=== PATIENT | female | born 1955 | race Caucasian/White ===

== ENCOUNTER 2020-05-28 11:36 | Outpatient (REF) | payer OTHER, SELFPAY | END 2020-05-28 11:37 | disposition home or self-care (01) | LOC: HO.LAB 11:36 | PROVIDERS: Visit Provider Internal Medicine | DX: Z20.822 Contact with and (suspected) exposure to COVID-19 (principal) | CPT/HCPCS: 36415; C9803; U0003 ==

== ENCOUNTER 2024-11-14 13:51 | Outpatient (AMB) | payer MEDICARE, SELFPAY ==
[2024-11-14 13:57] VITALS: BP 122/82; PULSE 96; O2SAT 95; BMI 30.3
--- NOTE | 2024-11-14 13:57 | A.OFFVIS_ITS ---
Vital Signs 11/14/24 13:57 Height 4 ft 11 in Weight 150 lb BMI 30.3 BP 122/82 Blood Pressure Location Lt brachial Position Sitting Pulse 96 Pulse Source Pulse Oximeter Pulse Oximetry (%) 95 Oxygen Delivery Method Room Air Intake Visit Reasons: COPD Allergies No Known Allergies Allergy (Verified 11/14/24 14:02) HPI HPI COPD: Details: 69-year-old lady, former approximately 20 pack-year smoker, quit approximately 10 years prior with recent bronchitic symptoms treated by her primary care with well course of antibiotics and also started on Arnuity/albuterol MDI, eventually with resolution of her symptoms, who referred for further pulmonary evaluation. Patient denies exposure to industrial dusts. She has what appears to be environmental allergies to dogs. She denies family history of lung disease except COPD in her mother who was a smoker. Patient does have recent chest x- ray from June of 2024 from per primary care provider that shows changes consistent with possible COPD. [facility] Social History (Updated 11/14/24 @ 14:07 by Suellen Engel [facility]) Patient Tobacco Use Status: Former Tobacco user Tobacco use type: Cigarette Years Smoked: started age 16, 0.5 PPD, quit 10 years ago Review of Systems Const Denies daytime sleepiness, Denies excessive sweating, Denies fatigue, Denies fever(s), Denies lethargy, Denies malaise, Denies night sweats, Denies snoring and Denies weight loss Eyes Denies blurry vision and Denies itchy eyes ENT Denies nasal congestion, Denies post nasal drip, Denies sinus pain, Denies sinus pressure and Denies other ( Thrush) Card Denies chest pain, Denies pedal edema, Denies dyspnea, Denies orthopnea and Denies paroxysmal nocturnal dyspnea Resp Denies cough, Denies hemoptysis, Denies excessive phlegm production, Denies dyspnea, Denies snoring and Denies wheezing GI Denies abdominal pain and Denies heartburn Musc Denies myalgias, Denies arthralgias and Denies joint swelling Skin/Breast Denies rash Neuro Denies memory loss and Denies seizure-like activity Psych Denies abnormal sleep pattern, Denies anxiety and Denies memory loss Endo Denies excessive sweating, Denies fatigue and Denies heat intolerance Les/Lymph Denies easy bruising Aller/Immun Denies itchy eyes, Denies seasonal rhinorrhea and Denies wheezing Physical Exam Vital Signs: Last Vital Signs Pulse 96 11/14/24 13:57 BP 122/82 11/14/24 13:57 Pulse Ox 95 11/14/24 13:57 Oxygen Delivery Method Room Air 11/14/24 13:57 BMI result Body Mass Index 30.3 Const General: no acute distress and alert Nutritional Appearance: not obese Orientation/consciousness: Other orientation findings ( oriented) HEENT Head: Yes atraumatic Eyes General: appearance normal, both eyes and all related structures Sclerae: sclerae normal EOM: EOMs intact bilaterally Neck Neck: Yes supple Lymphatic: no lymphadenopathy noted Resp Effort & Inspection: normal respiratory effort and no use of accessory muscles Auscultation: clear to auscultation bilaterally Cardio Rate: regular rate Rhythm: regular rhythm Heart sounds: no gallops, no murmurs and no rubs Skin General skin exam: other ( warm) Extrem General: No clubbing, No cyanosis and No edema Assessment & Plan Assessment & Plan (1) Asthma: Code(s): J45.909 - Unspecified asthma, uncomplicated Category: Medical Plan: Unclear if patient has asthma versus COPD versus asthma/COPD overlap syndrome. Will obtain full PFT. Will discontinue Arnuity at this time and reassess patient's symptoms. Continue albuterol MDI. (2) Environmental allergies: Code(s): Z91.09 - Other allergy status, other than to drugs and biological substances Category: Medical Plan: Will obtain RAST panel, IgE level, and CBC with differential for further evaluation. Orders: Orders Complete Blood Count Auto Diff Today Z91.09 - Other allergy status, other than to drugs and biological substances Resp Allergy Profile Region I Today Z91.09 - Other allergy status, other than to drugs and biological substances PFT pulmonary function test Today J45.909 - Unspecified asthma, uncomplicated Coding Level of Care Code New Pt Level 4 (98416) Diagnoses Asthma J45.909 Environmental allergies Z91.09
--- OUTSIDE RECORDS SUMMARY | 2024-11-14 14:42 | XMS_ITS | Clinical Summary ---
Author Organization [facility] Address [address] [place] [address] Phone Care Team Providers Care General Education Professor Name Role Phone Opal Peter MD Primary Care Provider [phone] Encounters Date Type Department Care Team Description 10/03/2024 8:46 AM EDT - 10/03/2024 11:59 PM EDT Hospital Encounter [facility] Bone Density [address] [place] [address] Age-related osteoporosis without current pathological fracture Discharge Disposition: Home or Self Care from Last 3 Months Social History Tobacco Use Types Packs/Day Years Used Date Smoking Tobacco: Never Assessed Comments Unknown Sex and Gender Information Value Date Recorded Sex Assigned at Not on file Legal Sex Female 2:00 PM EST Gender Identity Not on file Sexual Orientation Not on file Plan of Treatment Upcoming Encounters Date Type Department Care Team (Late st Contact Info) Description 12/10/2024 9:30 AM EDT [facility]ment [facility] [address] [address] Health Maintenance Due Date Last Done Comments DTaP,Tdap,and Td Vaccines (2 - Td or Tdap) 06/04/2020 06/04/2010 Colorectal Cancer Screening: Colonoscopy 03/31/2022 Depression Screening 03/31/2022 Falls Risk Assessment 03/31/2022 Hepatitis C Screening 03/31/2022 Medicare Annual Wellness Visit 03/31/2022 Social Influencers of Health Screening 03/31/2022 COVID-19 Vaccine ( season) 2024 04/18/2021, 08/11/2020 Influenza Vaccine (#1) 2024 4, 02/12/2022, 03/12/2021, Additional history exists Breast Cancer Screening 12/06/2025 12/07/19 24, 08/26/2022, 07/22/2021, Additional history exists Pneumococcal Vaccine: 50+ Years (3 of 3 - PCV20 or PCV21) 03/12/2026 03/12/2021, 02/15/2020 RSV Immunization Adult Patients (1 - 1-dose 75+ series) 09/01/2030 Osteoporosis Screening (Bone Density Screening) 10/03/2034 10/03/2024, 08/26/2022 Zoster Vaccines Completed 07/10/2024, 02/17/2024 HIB Vaccines Aged Out No longer eligi ble based on patient's age to complete this topic HPV Vaccines Aged Out No longer eligi ble based on patient's age to complete this topic Hepatitis A Vaccines Aged Out No long er eligible based on patient's age to complete this topic Hepatitis B Vaccines Aged Out No long er eligible based on patient's age to complete this topic IPV Vaccines Aged Out No longer eligi ble based on patient's age to complete this topic MMR Vaccines Aged Out No longer eligi ble based on patient's age to complete this topic Meningococcal ACWY Vaccine Aged Out N o longer eligible based on patient's age to complete this topic Meningococcal B Vaccine Aged Out No l onger eligible based on patient's age to complete this topic RSV Immunization Patients Under 20 months Aged Out No longer eligible based on patient's age to complete this topic Varicella Vaccines Aged Out No longer eligible based on patient's age to complete this topic Procedures Procedure Name Priority Date/Time Associated Diagnosis Comments BD BONE DENSITY DXA AXIAL SKELETON Routine 10/03/2024 9:49 AM EDT Age-related osteoporosis without current pathological fracture NORMAN SCREENING DIGITAL Routine 12/07/2023 1:15 PM EDT Encounter for screening mammogram for malignant neoplasm of breast from Last 3 Months or Most Recently Relevant to Health Maintenance Results * BD Bone Density DXA Axial Skeleton (10/03/2024 9:49 AM EDT) Anatomical Region Laterality Modality Wrist, Hip, L-spine Bone Densito metry 10/03/2024 9:26 AM EDT Impressions 10/03/2024 9:30 AM EDT 1. Osteoporosis. There has been a decrease of 8.8% in bone mineral density in the lumbar spine since the prior examination of 08/26/2022. There has been a decrease of 2.4% in bone mineral density in the right femur and an increase of 3.7% in bone mineral density in the left femur. 2. FRAX analysis yields a 10-year probability of major osteoporotic fracture of 19.4% and a 10-year probability of hip fracture of 3.8%. Code 65120 -------- FINAL REPORT -------- Dictated By: Pollo Mackey Dictated Date: 10/03/2024 09:26 ET Assigned Physician: Pollo Mackey Reviewed and Electronically Signed By: Pollo Mackey Signed Date: 10/03/2024 09:30 ET Workstation ID: [id number] Transcribed By: Self Edit Transcribed Date: 10/03/2024 09:28 ET Narrative 10/03/2024 9:30 AM EDT HISTORY: The patient is a 69-year-old postmenopausal female with clinical concern for metabolic bone disease. FINDINGS: Dual energy x-ray absorptiometry of the lumbar spine and femurs is performed. The mean bone mineral density at L2-4 is 0.897 gm/cm2 which is 75% of that of young normals and 89% of that of age matched controls. This yields a T-score of -2.5 and a Z-score of -0.9 which is diagnostic of osteoporosis. The mean bone mineral density of the femurs bilaterally is 0.893 gm/cm2 which is 89% of that of young normals and 107% of that of age matched controls. This yields a T-score of -0.9 and a Z-score of 0.5 and there is therefore no evidence of osteoporosis or osteopenia here. However, the T-score of the right femoral neck is -1.5 and that of the left femoral neck is -2.2 which is diagnostic of osteopenia. Procedure Note Pollo Mackey MD - 10/03/2024 HISTORY: The patient is a 69-year-old postmenopausal female with clinicalconcern for metabolic bone disease. FINDINGS: Dual energy x-ray absorptiometry of the lumbar spine and femursis performed. The mean bone mineral density at L2-4 is 0.897 gm/cm2 whichis 75% of that of young normals and 89% of that of age matched controls.This yields a T-score of -2.5 and a Z-score of -0.9 which is diagnostic ofosteoporosis. The mean bone mineral density of the femurs bilaterally is 0.893 gm/mn2avuqa is 89% of that of young normals and 107% of that of age matchedcontrols. This yields a T-score of -0.9 and a Z-score of 0.5 and there istherefore no evidence of osteoporosis or osteopenia here. However, theT-score of the right femoral neck is -1.5 and that of the left femoralneck is -2.2 which is diagnostic of osteopenia. IMPRESSION: 1. Osteoporosis. There has been a decrease of 8.8% in bone mineraldensity in the lumbar spine since the prior examination of 08/26/2022.There has been a decrease of 2.4% in bone mineral density in the rightfemur and an increase of 3.7% in bone mineral density in the left femur. 2. FRAX analysis yields a 10-year probability of major osteoporoticfracture of 19.4% and a 10-year probability of hip fracture of 3.8%. Code 50269 -------- FINAL REPORT -------- Dictated By: Pollo Mackey Dictated Date: 10/03/2024 09:26 ET Assigned Physician: Pollo Mackey Reviewed and Electronically Signed By: Pollo Mackey Signed Date: 10/03/2024 09:30 ET Workstation ID: [id number] Transcribed By: Self Edit Transcribed Date: 10/03/2024 09:28 ET us Opal Peter MD Kaelyn DXA PROCEDURES Final Re sult * NORMAN SCREENING DIGITAL (12/07/2023 1:15 PM EDT) Anatomical Region Laterality Modality Mammography 12/07/2023 8:18 AM EDT Narrative 12/07/2023 1:15 PM EDT [facility] Diagnostic Imaging Department [address] [place] [address] Patient: ONOFRE NÚÑEZ /Age/Sex: 1955 68 - F Unit#: [id number] Location/Status: SPDIMAM/REG CLI Mnemonic/Ordering Site: [facility] Ordering Physician: OPAL PETER MD [facility] Screening Digital - 12/07/23 - 0840 Report Status:Signed EXAM: [facility] Screening Digital EXAM DATE AND TIME: 12/07/2023 8:41 AM HISTORY: Screening. COMPARISON: 08/26/22, 07/22/21, 04/14/20 TECHNIQUE: Bilateral digital breast tomosynthesis was performed in the CC and MLO projections. Computer aided detection with Incoming Media 3D 3.1 was employed. TISSUE DENSITY: b. There are scattered areas of fibroglandular density. FINDINGS: No suspicious masses, grouped microcalcifications, or areas of architectural distortion are seen. The skin and vascularity are unremarkable. IMPRESSION: Stable mammographic appearance of the breasts. No evidence of malignancy is seen. A negative mammogram in the presence of a clinically suspicious palpable abnormality does not preclude the possibility of malignancy or alter the indications for biopsy. BI-RADS: Category 1: Negative RECOMMENDATION(S): 1: Routine screening mammogram BILATERAL in 1 year. Dictating Physician: MELISSA VENTURA MD Electronically Signed by: MELISSA VENTURA MD Dic Date/Time: 12/07/23 1315 Sign date/Time: 12/07/23 1315 Procedure Note Melissa Ventura MD - 02/15/2024 [facility] Diagnostic Imaging Department [address] [place] [address] Patient: ONOFRE NÚÑEZ /Age/Sex: 1955 68 - Unit#: [id number] Location/Status: [facility]/REG CLI Mnemonic/Ordering Site: [facility] Ordering Physician: OPAL PETER MD [facility] Screening Digital - 12/07/23 - 0840 Report Status:Signed EXAM: [facility] Screening Digital EXAM DATE AND TIME: 12/07/2023 8:41 AM HISTORY: Screening. COMPARISON: 08/26/22, 07/22/21, 04/14/20 TECHNIQUE: Bilateral digital breast tomosynthesis was performed in the CCand MLO projections. Computer aided detection with Incoming Media 3D 3.1was employed. TISSUE DENSITY: b. There are scattered areas of fibroglandular density. FINDINGS: No suspicious masses, grouped microcalcifications, or areas ofarchitectural distortion are seen. The skin and vascularity are unremarkable. IMPRESSION: Stable mammographic appearance of the breasts. No evidence of malignancyis seen. A negative mammogram in the presence of a clinically suspicious palpable abnormality does not preclude the possibility of malignancy or alter the indications for biopsy. BI-RADS: Category 1: Negative RECOMMENDATION(S): 1: Routine screening mammogram BILATERAL in 1 year. Dictating Physician: MELISSA VENTURA MD Electronically Signed by: MELISSA VENTURA MD Dic Date/Time: 12/07/23 1315 Sign date/Time: 12/07/23 1315 Opal Peter MD IMG BI PROCEDURES Final Res ult from Last 3 Months or Most Recently Relevant to Health Maintenance Insurance [employer] MED[employer]ARE ADVANTAGE Care Teams General Education Professor Relationship Specialty Start Date End Date Opal Peter MD [address] [facility] [address] [place], [place] PCP - General Internal Medicine 05/31/24
== END 2024-11-14 14:24 | disposition home or self-care (01) ==
LOC: HO.HPS 13:52
PROVIDERS: PCP Internal Medicine; Referring Provider Internal Medicine; Visit Provider Internal Medicine Pulmonary Disease
DX: J45.909 Unspecified asthma, uncomplicated (principal); Z91.09 Other allergy status, other than to drugs and biological substances
CPT/HCPCS: 99204

== ENCOUNTER 2024-11-14 13:51 | Outpatient (REF) | payer MEDICARE, SELFPAY ==
[2024-11-24 02:24] LABS: Class Alternaria alternata 0; Class Aspergillus fumigatus 0; Class Bermuda Grass 0; Class Birch 0; Class Cat Dander 0; Class Cladosporium herbarum 0; Class Cockroach 0; Class Common Ragweed 0; Class Cottonwood 0; Class Derm. pterony 0; Class Dermatophagoides farinae 0; Class Dog Dander 0; Class Elm 0; Class Maple Box Elder 0; Class Mountain Cedar 0; Class Mouse Urine Protein 0; Class Mugwort 0; Class Oak 0; Class Penicillium crysogenum 0; Class Rough Pigweed 0; Class Sheep Sorrel 0; Class Sycamore 0; Class Timothy Grass 0; Class Walnut Tree 0; Class White Ash 0; Class White Mulberry 0; D002 - IgE D farinae <0.10 kU/L; E001 - IgE Cat Dander <0.10 kU/L; E005 - IgE Dog Dander <0.10 kU/L; G006 - IgE Timothy Grass <0.10 kU/L; I006-IgE Cockroach, German <0.10 kU/L; M002 - IgE Cladosporium herbar <0.10 kU/L; M003 - IgE Aspergillus fumigat <0.10 kU/L; M006 - IgE Alternaria alternat <0.10 kU/L; T001 IgE Maple/Box Elder <0.10 kU/L; T006 - IgE Cedar, Mountain <0.10 kU/L; T007 - IgE Oak, White <0.10 kU/L; T008 IgE Elm, American <0.10 kU/L; T010 - IgE Walnut <0.10 kU/L; T011 - IgE Maple Leaf Sycamore <0.10 kU/L; T014 - IgE Cottonwood <0.10 kU/L; T015 - IgE Ash, White <0.10 kU/L; T070 - IgE White Mulberry <0.10 kU/L; W001 - IgE Ragweed, Short <0.10 kU/L; W006 - IgE Mugwort <0.10 kU/L; W014 IgE Pigweed, Common <0.10 kU/L; W018 IgE Sheep Sorrel <0.10 kU/L
== END 2024-11-14 13:52 | disposition home or self-care (01) ==
LOC: HO.LAB 13:51
PROVIDERS: PCP Internal Medicine; Referring Provider Internal Medicine; Visit Provider Internal Medicine Pulmonary Disease
DX: Z91.09 Other allergy status, other than to drugs and biological substances (principal); J45.909 Unspecified asthma, uncomplicated; Z87.891 Personal history of nicotine dependence
CPT/HCPCS: 36415; 82785; 86003; 99202

== ENCOUNTER 2025-01-30 09:47 | Outpatient (REF) | payer MEDICARE, SELFPAY ==
--- NOTE | 2025-01-30 09:54 | PFT_ITS ---
Indication: Asthma Spirometry FEV1 to FVC 48%; FEV1 0.9 L; FVC 1.86 L. No significant response to bronchodilators noted. Lung Volumes Total lung capacity 95% predicted; residual volume 132% predicted Diffusion Capacity DLCO 45% predicted Comparison None Interpretation There is an obstructive ventilatory defect consistent with severe COPD. No significant response to bronchodilators noted. Lung volumes are normal except significant air trapping due to the COPD. The patient also has a severe diffusion impairment. Clinical correlation warranted. MTDD
[2025-01-30 10:36] VITALS: PULSE 97; O2SAT 96
--- OUTSIDE RECORDS SUMMARY | 2025-01-30 10:43 | XMS_ITS | Clinical Summary ---
Author Organization [facility] Address [address] [place] [address] Phone Care Team Providers Care Physician Vice President Name Role Phone Bhanu Quigley MD Primary Care Provider [phone] Allergies Active Allergy Reactions Criticality Noted Date Comments Codeine 12/14/2024 Other Reaction(s): dizziness/ nausea Medications mometasone (ELOCON) 0.1 % cream Apply topically 1 (one) time each day. to affected area 5 Active ALPRAZolam (XANAX) 0.5 mg tablet Take 1 tablet (0.5 mg total) by mouth 3 (three) times a day if needed for anxiety. Max Daily Amount: 1.5 mg Active albuterol HFA (PROAIR HFA ; PROVENTIL HFA ; VENTOLIN HFA) 90 mcg/actuation inhaler Inhale 1 puff by mouth every 6 (six) hours if needed for shortness of breath. 5 Active Pulmicort Flexhaler 180 mcg/actuation inhaler Inhale 1 puff by mouth 2 (two) times a day. 5 Active pantoprazole (PROTONIX) 40 mg EC tablet Take 1 tablet (40 mg total) by mouth 1 (one) time each day before breakfast. 4 Active multivitamin tablet Take 1 tablet by mouth 1 (one) time each day. 5 Active cholecalciferol (VITAMIN D-3) 25 mcg (1,000 unit) capsule Take 1 capsule (1,000 Units total) by mouth 1 (one) time each day. 5 Active Bacillus coagulans/inuli n (PROBIOTIC FORMULA, INULIN, ORAL) Take 1 capsule by mouth. 4 Active MAGNESIUM GLYCINATE ORAL Take by mouth. 5 Active Encounters Date Type Department Care Team Description 12/10/2024 9:17 AM EDT - 12/10/2024 11:59 PM EDT Hospital [facility] [address] [place] [phone] Encounter for screening mammogram for breast cancer Discharge Disposition: Home or Self Care 12/07/2024 Telephone Gastroenterology - [address] [phone] Jv Green MD from Last 3 Months Social History Tobacco Use Types Packs/Day Years Used Date Smoking Tobacco: Never Assessed Comments No Sex and Gender Information Value Date Recorded Sex Assigned at Not on file Legal Sex Female 2:00 PM EST Gender Identity Not on file Sexual Orientation Not on file Obstetrics History Para Term AB IAB SAB Ectopic Multiple Livin g Live Births 2 Last Filed Vital Signs Vital Sign Reading Time Taken Comments Blood Pressure - - Pulse - - Temperature - - Respiratory Rate - - Oxygen Saturation - - Inhaled Oxygen Concentration - - Weight 69.4 kg (153 lb) 12/10/2024 9:28 AM EDT Height 149.9 cm (4' 11 ) 12/10/2024 9:28 AM EDT Body Mass Index 30.9 12/10/2024 9:28 AM EDT Plan of Treatment Upcoming Encounters Date Type Department Care Team (Late st Contact Info) Description 03/20/2025 10:00 AM EST Appointment [facility] Endoscopy [address] [place] [phone] Jv Green MD [address] [address] Health Maintenance Due Date Last Done Comments Colorectal Cancer Screening: Colonoscopy 1955 DTaP,Tdap,and Td Vaccines (2 - Td or Tdap) 06/04/2020 06/04/2010 Falls Risk Assessment 03/31/2022 Hepatitis C Screening 03/31/2022 Medicare Annual Wellness Visit 03/31/2022 Social Influencers of Health Screening 03/31/2022 Depression Screening 05/02/2024 COVID-19 Vaccine (3 - season) 2024 04/18/2021, 08/11/2020 Influenza Vaccine (#1) 2024 , 02/12/2022, 03/12/2021, Additional history exists Pneumococcal Vaccine: 50+ Years (3 of 3 - PCV20 or PCV21) 03/12/2026 03/12/2021, 02/15/2020 Breast Cancer Screening 12/10/2026 12/11/19 25, 12/07/2023, 08/26/2022, Additional history exists RSV Immunization Adult Patients (1 - 1-dose [...] Procedure Name Priority Date/Time Associated Diagnosis Comments TISSUE EXAM Routine 12/17/2024 9:56 AM EDT MG MAMMO DIGITAL SCREENING W PRASHANTH BILAT Routine 12/10/2024 9:35 AM EDT Encounter for screening mammogram for breast cancer BD BONE DENSITY DXA AXIAL SKELETON Routine 10/03/2024 9:49 AM EDT Age-related osteoporosis without current pathological fracture from Last 3 Months or Most Recently Relevant to Health Maintenance Results * Tissue exam (12/17/2024 9:56 AM EDT) Tissue us Historical Provider MD LAB PATHOLOGY ORDERABLES Final Result * MG Mammo Digital Screening w Prashanth bilat (12/10/2024 9:35 AM EDT) Anatomical Region Laterality Modality Breast Bilateral Mammography 12/10/2024 9:57 AM EDT Impressions 12/10/2024 10:17 AM EDT Benign. BI-RADS CATEGORY: 1 - NEGATIVE RECOMMENDATION: Screening bilateral mammogram is recommended in 1 year. Mammo Location: [facility], [address] [place] [address], [id number], . -------- FINAL REPORT -------- Dictated By: Neo Briscoe Dictated Date: 12/10/2024 09:57 ET Assigned Physician: Neo Briscoe Reviewed and Electronically Signed By: Neo Briscoe Signed Date: 12/10/2024 10:17 ET Workstation ID: [id number] Transcribed By: Self Edit Transcribed Date: 12/10/2024 10:02 ET Narrative 12/10/2024 10:17 AM EDT CLINICAL: 69 years old, Female, routine annual exam. COMPARISON: 12/07/2023. TECHNIQUE: Bilateral MLO and CC views were obtained digitally with 3-D mammogram (digital breast tomosynthesis). Computer-aided detection was utilized in evaluation of this exam (CAD). FINDINGS: There is no evidence of suspicious mass or architectural distortion. No worrisome calcifications are evident. There has been no significant change from prior exam(s). BREAST DENSITY: B - There are scattered areas of fibroglandular density. Procedure Note Neo Briscoe MD - 12/10/2024 CLINICAL: 69 years old, Female, routine annual exam. COMPARISON: 12/07/2023. TECHNIQUE: Bilateral MLO and CC views were obtained digitally with 3-Dmammogram (digital breast tomosynthesis). Computer-aided detection wasutilized in evaluation of this exam (CAD). FINDINGS: There is no evidence of suspicious mass or architectural distortion. Noworrisome calcifications are evident. There has been no significantchange from prior exam(s). BREAST DENSITY: B - There are scattered areas of fibroglandular density. IMPRESSION: Benign. BI-RADS CATEGORY: 1 - NEGATIVE RECOMMENDATION: Screening bilateral mammogram is recommended in 1 year. Mammo Location: [facility], [address] [place] [address], [id number], . -------- FINAL REPORT -------- Dictated By: Neo Briscoe Dictated Date: 12/10/2024 09:57 ET Assigned Physician: Neo Briscoe Reviewed and Electronically Signed By: Neo Briscoe Signed Date: 12/10/2024 10:17 ET Workstation ID: [id number] Transcribed By: Self Edit Transcribed Date: 12/10/2024 10:02 ET us Self Referral Sppl IMG BI PROCEDURES Final Resul t * BD Bone Density DXA Axial Skeleton [...] probability of hip fracture of 3.8%. Code 83464 -------- FINAL REPORT -------- Dictated By: Pollo Mackey Dictated Date: 10/03/2024 09:26 ET Assigned Physician: Pollo Mackey Reviewed and Electronically Signed By: Pollo Mackey Signed Date: 10/03/2024 09:30 ET Workstation ID: [id number] Transcribed By: Self Edit Transcribed Date: 10/03/2024 [...] density of the femurs bilaterally is 0.893 gm/ia4xpqbj is 89% of that of young normals [...] probability of hip fracture of 3.8%. Code 52096 -------- FINAL REPORT -------- Dictated By: Pollo Mackey Dictated Date: 10/03/2024 09:26 ET Assigned Physician: Pollo Mackey Reviewed and Electronically Signed By: Pollo Mackey Signed Date: 10/03/2024 09:30 ET Workstation ID: [id number] Transcribed By: Self Edit Transcribed Date: 10/03/2024 09:28 ET Bhanu Quigley MD IMG DXA PROCEDURES Final Re sult from Last 3 Months or Most Recently Relevant to Health Maintenance Insurance [employer] MED[employer]ARE ADVANTAGE Care Teams Physician Vice President Relationship Specialty Start Date End Date Bhanu Quigley MD [address] [facility] [address] [place], [place] PCP - General Internal Medicine 05/31/24
== END 2025-01-30 09:48 | disposition home or self-care (01) ==
LOC: HO.RESP 09:47
PROVIDERS: PCP Internal Medicine; Visit Provider Internal Medicine Pulmonary Disease
DX: J45.909 Unspecified asthma, uncomplicated (principal)
CPT/HCPCS: 94010; 94640; 94727; 94729

== ENCOUNTER → 2025-01-30 09:54 | Outpatient (BNV) | payer MEDICARE, SELFPAY | PROVIDERS: PCP Internal Medicine; Visit Provider Hospitalist | DX: J98.4 Other disorders of lung (principal) | CPT/HCPCS: 94060; 94727; 94729 ==

== ENCOUNTER 2025-02-06 14:24 | Outpatient (AMB) | payer MEDICARE, SELFPAY ==
[2025-02-06 14:30] VITALS: BP 106/74; PULSE 114; O2SAT 95; BMI 31.1
--- NOTE | 2025-02-06 14:30 | A.OFFVIS_ITS ---
Vital Signs 02/06/25 14:30 Height 4 ft 11 in Weight 154 lb BMI 31.1 BP 106/74 Blood Pressure Location Lt brachial Position Sitting Pulse 114 H Pulse Source Pulse Oximeter Pulse Oximetry (%) 95 Oxygen Delivery Method Room Air Intake Visit Reasons: Asthma Allergies No Known Allergies Allergy (Verified 02/06/25 14:38) HPI HPI Asthma: Details: 69-year-old lady, former approximately 20 pack-year smoker, quit approximately 10 years prior with recent bronchitic symptoms treated by her primary care with well course of antibiotics and also started on Arnuity/albuterol MDI, eventually with resolution of her symptoms, who referred for further pulmonary evaluation. Patient denies exposure to industrial dusts. She has what appears to be environmental allergies to dogs. She denies family history of lung disease except COPD in her mother who was a smoker. Patient does have recent chest x-ray from June of 2024 from per primary care provider that shows changes consistent with possible COPD. After the last office visit patient had her pulmonary function test that showed underlying severe obstructive physiology. [facility] Social History (Updated 11/14/24 @ 14:07 by Suellen Engel [facility]) Patient Tobacco Use Status: Former Tobacco user Tobacco use type: Cigarette Years Smoked: started age 16, 0.5 PPD, quit 10 years ago Review of Systems Const Denies daytime sleepiness, Denies excessive sweating, Denies fatigue, Denies fever(s), Denies lethargy, Denies malaise, Denies night sweats, Denies snoring and Denies weight loss Eyes Denies blurry vision and Denies itchy eyes ENT Denies nasal congestion, Denies post nasal drip, Denies sinus pain, Denies sinus pressure and Denies other ( Thrush) Card Denies chest pain, Denies pedal edema, Denies dyspnea, Denies orthopnea and D enies paroxysmal nocturnal dyspnea Resp Denies cough, Denies hemoptysis, Denies excessive phlegm production, Denies dyspnea, Denies snoring and Denies wheezing GI Denies abdominal pain and Denies heartburn Musc Denies myalgias, Denies arthralgias and Denies joint swelling Skin/Breast Denies rash Neuro Denies memory loss and Denies seizure-like activity Psych Denies abnormal sleep pattern, Denies anxiety and Denies memory loss Endo Denies excessive sweating, Denies fatigue and Denies heat intolerance Les/Lymph Denies easy bruising Aller/Immun Denies itchy eyes, Denies seasonal rhinorrhea and Denies wheezing Physical Exam Vital Signs: Last Vital Signs Pulse 114 H 02/06/25 14:30 BP 106/74 02/06/25 14:30 Pulse Ox 95 02/06/25 14:30 Oxygen Delivery Method Room Air 02/06/25 14:30 BMI result Body Mass Index 31.1 Const General: no acute distress and alert Nutritional Appearance: not obese Orientation/consciousness: Other orientation findings ( oriented) HEENT Head: Yes atraumatic Eyes General: appearance normal, both eyes and all related structures Sclerae: sclerae normal EOM: EOMs intact bilaterally Neck Neck: Yes supple Lymphatic: no lymphadenopathy noted Resp Effort & Inspection: normal respiratory effort and no use of accessory muscles Auscultation: clear to auscultation bilaterally Cardio Rate: regular rate Rhythm: regular rhythm Heart sounds: no gallops, no murmurs and no rubs Skin General skin exam: other ( warm) Extrem General: No clubbing, No cyanosis and No edema Assessment & Plan Assessment & Plan (1) COPD (chronic obstructive pulmonary disease): Code(s): J44.9 - Chronic obstructive pulmonary disease, unspecified Category: Medical Plan: Results of pulmonary function test reviewed, underlying severe COPD. Will switch Arnuity to Anoro. Continue albuterol MDI. Will refer to Pulmonary rehab. Coding Level of Care Code Est Pt Level 3 (93611) Diagnoses COPD (chronic obstructive pulmonary disease) J44.9
== END 2025-02-06 15:00 | disposition home or self-care (01) ==
LOC: HO.HPS 14:25
PROVIDERS: PCP Internal Medicine; Visit Provider Internal Medicine Pulmonary Disease
DX: J44.9 Chronic obstructive pulmonary disease, unspecified (principal); J45.909 Unspecified asthma, uncomplicated
CPT/HCPCS: 99213

== ENCOUNTER → 2025-02-06 14:24 | Outpatient (BNVA) | payer MEDICARE, SELFPAY | PROVIDERS: PCP Internal Medicine; Visit Provider Internal Medicine Pulmonary Disease | DX: Z71.2 Person consulting for explanation of examination or test findings (principal); J44.9 Chronic obstructive pulmonary disease, unspecified; Z23 Encounter for immunization | CPT/HCPCS: 90471; 90656; 99212 ==

== ENCOUNTER 2025-05-01 10:21 | Outpatient (AMB) | payer MEDICARE, SELFPAY ==
[2025-05-01 10:22] VITALS: BP 132/88; PULSE 109; O2SAT 95; BMI 31.5
--- NOTE | 2025-05-01 10:22 | A.OFFVIS_ITS ---
Vital Signs 05/01/25 10:22 Height 4 ft 11 in Weight 156 lb BMI 31.5 BP 132/88 Blood Pressure Location Lt brachial Position Sitting Pulse 109 H Pulse Source Pulse Oximeter Pulse Oximetry (%) 95 Oxygen Delivery Method Room Air Intake Visit Reasons: Asthma Allergies No Known Allergies Allergy (Verified 05/01/25 10:32) HPI HPI Asthma: Details: 69-year-old lady, former approximately 20 pack-year smoker, quit approximately 10 years prior, now followed for severe COPD. After the last office visit patient was started on Anoro with good symptomatic improvement. She also tried pulmonary rehab and at this time does not want to continue further. She complains of difficulties falling asleep. [facility] Social History (Updated 11/14/24 @ 14:07 by Suellen Engel [facility]) Patient Tobacco Use Status: Former Tobacco user Tobacco use type: Cigarette Years Smoked: started age 16, 0.5 PPD, quit 10 years ago Review of Systems Const Denies daytime sleepiness, Denies excessive sweating, Denies fatigue, Denies fever(s), Denies lethargy, Denies malaise, Denies night sweats, Denies snoring and Denies weight loss Eyes Denies blurry vision and Denies itchy eyes ENT Denies nasal congestion, Denies post nasal drip, Denies sinus pain, Denies sinus pressure and Denies other ( Thrush) Card Denies chest pain, Denies pedal edema, Denies dyspnea, Denies orthopnea and Denies paroxysmal nocturnal dyspnea Resp Denies cough, Denies hemoptysis, Denies excessive phlegm production, Denies dyspnea, Denies snoring and Denies wheezing GI Denies abdominal pain and Denies heartburn Musc Denies myalgias, Denies arthralgias and Denies joint swelling Skin/Breast Denies rash Neuro Denies memory loss and Denies seizure-like activity Psych Denies abnormal sleep pattern, Denies anxiety and Denies memory loss Endo Denies excessive sweating, Denies fatigue and Denies heat intolerance Les/Lymph Denies easy bruising Aller/Immun Denies itchy eyes, Denies seasonal rhinorrhea and Denies wheezing Physical Exam Vital Signs: Last Vital Signs Pulse 109 H 05/01/25 10:22 BP 132/88 05/01/25 10:22 Pulse Ox 95 05/01/25 10:22 Oxygen Delivery Method Room Air 05/01/25 10:22 BMI result Body Mass Index 31.5 Const General: no acute distress and alert Nutritional Appearance: not obese Orientation/consciousness: Other orientation findings ( oriented) HEENT Head: Yes atraumatic Eyes General: appearance normal, both eyes and all related structures Sclerae: sclerae normal EOM: EOMs intact bilaterally Neck Neck: Yes supple Lymphatic: no lymphadenopathy noted Resp Effort & Inspection: normal respiratory effort and no use of accessory muscles Auscultation: clear to auscultation bilaterally Cardio Rate: regular rate Rhythm: regular rhythm Heart sounds: no gallops, no murmurs and no rubs Skin General skin exam: other ( warm) Extrem General: No clubbing, No cyanosis and No edema Assessment & Plan Assessment & Plan (1) COPD (chronic obstructive pulmonary disease): Code(s): J44.9 - Chronic obstructive pulmonary disease, unspecified Category: Medical Plan: Improved control on Anoro and albuterol MDI. Continue current regimen. (2) Primary insomnia: Code(s): F51.01 - Primary insomnia Category: Medical Plan: Will try on as needed trazodone. Medications: New trazodone 50 mg PO BEDTIME PRN 30 tabs 3RF sleep Coding Level of Care Code Est Pt Level 4 (59794) Diagnoses COPD (chronic obstructive pulmonary disease) J44.9 Primary insomnia F51.01
--- OUTSIDE RECORDS SUMMARY | 2025-05-01 11:28 | XMS_ITS | Clinical Summary ---
Author Organization [facility] Address [address] [place] [address] Phone Care Team Providers Care Nutritional Services Cook Name Role Phone Bhanu Quigley MD Primary Care Provider [phone] Allergies Active Allergy Reactions Criticality Noted Date Comments Codeine 12/14/2024 Other Reaction(s): dizziness/ nausea Medications mometasone (ELOCON) 0.1 % cream Apply topically 1 (one) time each day. to affected area 5 Active ALPRAZolam (XANAX) 0.5 mg tablet Take 1 tablet (0.5 mg total) by mouth 3 (three) times a day if needed for anxiety. Active albuterol HFA (PROAIR HFA ; PROVENTIL [...] GLYCINATE ORAL Take by mouth. 5 Active sodium,potassiu m,mag sulfates (Suprep Bowel Prep Kit) 17.5-3.13-1.6 gram recon soln bowel prep kit oral solution Take 177ML by mouth for 2 doses. SEE INSTRUCTIONS PROVIDED BY OFFICE. 1 kit 5 Active Active Problems Problem Noted Date Diagnosed Date Asthma 03/20/2025 Chronic obstructive pulmonary disease 03/20/2025 Gastroesophageal reflux disease 03/20/2025 Encounters Date Type Department Care Team Description 03/20/2025 10:28 AM EST Anesthesia Event [facility] Endoscopy [address] [place] [phone] Aniyah Cano MD 03/20/2025 8:37 AM EST - 03/20/2025 11:59 PM EST Hospital Encounter [facility] Endoscopy [address] [place] [phone] Jv Green MD Barnes, Tyanna R, CRNA Korobkov, Vitaliy, Hx of colonic polyps Discharge Disposition: Home or Self Care from Last 3 Months Social History Tobacco Use Types Packs/Day Years Used Date Smoking Tobacco: Never Assessed Interpersonal Safety Answer Date Record ed Physical Abuse Unrecognized value 03/20/2025 Verbal Abuse Unrecognized value 03/20/2025 Comments No Sex and Gender Information Value Date Recorded Sex Assigned at Not on file Legal Sex Female 2:00 PM EST Gender Identity Not on file Sexual Orientation Not on file Obstetrics History Para Term AB IAB SAB Ectopic Multiple Livin g Live Births 2 Last Filed Vital Signs Vital Sign Reading Time Taken Comments Blood Pressure 114/77 03/20/2025 11:06 AM EST Pulse 90 03/20/2025 11:06 AM EST Temperature 36.4 C (97.6 F) 03/20/2025 9:38 AM EST Respiratory Rate 25 03/20/2025 11:06 AM EST Oxygen Saturation 97% 03/20/2025 11:06 AM EST Inhaled Oxygen Concentration - - Weight 68.9 kg (152 lb) 03/20/2025 9:38 AM EST Height 149.9 cm (4' 11 ) 03/20/2025 9:38 AM EST Body Mass Index 30.7 03/20/2025 9:38 AM EST Plan of Treatment Health Maintenance Due Date Last Done Comments Drug Screen 1955 Non-Opioid Controlled Substance Agreement 1955 RSV Immunization Adult Patients (1 - Risk 50-74 years 1-dose series) 09/01/2005 DTaP,Tdap,and Td Vaccines (2 - Td or Tdap) 06/04/2020 06/04/2010 Hepatitis C Screening 03/31/2022 Medicare Annual Wellness Visit 03/31/2022 Social Influencers of Health Screening 03/31/2022 Depression Screening 05/02/2024 COVID-19 Vaccine (3 - season) 2024 04/18/2021, 08/11/2020 Pneumococcal Vaccine: 50+ Years (3 of 3 - PCV20 or PCV21) 03/12/2026 03/12/2021, 02/15/2020 Falls Risk Assessment 03/20/2026 03/20/2025 Breast Cancer Screening 12/10/2026 12/11/19 25, 12/07/2023, 08/26/2022, Additional history exists Osteoporosis Screening (Bone Density Screening) 10/03/2034 10/03/2024, 08/26/2022 Colorectal Cancer Screening: Colonoscopy 03/20/2035 03/20/2025 Zoster Vaccines Completed 07/10/2024, 02/17/2024 Influenza Vaccine Completed 02/06/2025, , 02/12/2022, Additional history exists HIB Vaccines Aged Out No longer eligi [...] on patient's age to complete this topic Goals Goal Patient Goal Type Associated Problems Recent Progress Patient-Stated? Author Autogenera mati Goal Care Plan Autogenerated Problem No Selina Muñoz Procedures Procedure Name Priority Date/Time Associated Diagnosis Comments COLONOSCOPY Routine 03/20/2025 10:45 AM EST Hx of colonic polyps MG MAMMO DIGITAL SCREENING W PRASHANTH BILAT Routine 12/10/2024 9:35 AM EDT Encounter for screening mammogram for breast cancer BD BONE DENSITY DXA AXIAL SKELETON Routine 10/03/2024 9:49 AM EDT Age-related osteoporosis without current pathological fracture from Last 3 Months or Most Recently Relevant to Health Maintenance Results * COLONOSCOPY Anesthesia - MAC; [facility] ENDOSCOPY (03/20/2025 10:45 AM EST) Anatomical Region Laterality Modality Other 03/20/2025 9:57 AM EST Impressions 03/20/2025 10:51 AM EST - Diverticulosis in the sigmoid colon and in the descending colon. - The examination was otherwise normal on direct and retroflexion views. - No specimens collected. Recommendation: - Repeat colonoscopy is not recommended due to current age (66 years or older). Narrative 03/20/2025 10:51 AM EST [facility] GI Patient Name: Onofre Núñez Procedure Date: 03/20/2025 9:57 AM Date of : 1955 Age: 69 Room: ROOM 14 Gender: Female Note Status: Finalized Attending MD: Jv Green MD, Procedure Date No Time: 03/20/2025 Procedure: Colonoscopy Indications: High risk colon cancer surveillance: Personal history of colonic polyps Providers: Jv Green MD Referring MD: Jv Green MD Medicines: Propofol per Anesthesia Complications: No immediate complications. Estimated Blood Loss: Estimated blood loss: none. Procedure: Pre-Anesthesia Assessment: - ASA Grade Assessment: II - A patient with mild systemic disease. After I obtained informed consent, the scope was passed under direct vision. Throughout the procedure, the patient's blood pressure, pulse, and oxygen saturations were monitored continuously.The Colonoscope was introduced through the anus and advanced to the cecum, identified by appendiceal orifice and ileocecal valve. The colonoscopy was performed without difficulty. The patient tolerated the procedure well. The quality of the bowel preparation was good. Findings: The perianal and digital rectal examinations were normal. Multiple diverticula were found in the sigmoid colon and descending colon. The exam was otherwise without abnormality on direct and retroflexion views. Procedure Code(s): --- Professional --- G0105, Colorectal cancer screening; colonoscopy on individual at high risk Diagnosis Code(s): --- Professional --- Z86.010, Personal history of colonic polyps K57.30, Diverticulosis of large intestine without perforation or abscess without bleeding CPT copyright 2020 [employer]. All rights reserved. The codes documented in this report are preliminary and upon indirect sales exec review may be revised to meet current compliance requirements. Jv Green MD 03/20/2025 10:51:11 AM This report has been signed electronically.Jv Green MD Number of Addenda: 0 Note Initiated On: 03/20/2025 9:57 AM Scope In: Scope Out: Endoscopy Department at [facility] - [address] [place] [phone] Procedure Note Jv Green MD - 03/20/2025 [facility] GI Patient Name: Onofre Núñez Procedure Date: 03/20/2025 9:57 AM Date of : 1955 Age: 69 Room: ROOM 14 Gender: Female Note Status: Finalized Attending MD: Jv Green MD, Procedure Date No Time: 03/20/2025 Procedure: Colonoscopy Indications: High risk colon cancer surveillance: Personalhistory of colonic polyps Providers: Jv Green MD Referring MD: Jv Green MD Medicines: Propofol per Anesthesia Complications: No immediate complications. Estimated Blood Loss: Estimated blood loss: none. Procedure: Pre-Anesthesia Assessment: - ASA Grade Assessment: II - A patient with mild systemic disease. After I obtained informed consent, the scope was passed under direct vision. Throughout theprocedure, the patient's blood pressure, pulse, and oxygen saturations were monitored continuously.The Colonoscope was introduced through the anus and advanced to the cecum, identified by appendiceal orifice and ileocecal valve. The colonoscopy was performed without difficulty. The patient tolerated the procedure well. The quality of the bowel preparation was good. Findings: The perianal and digital rectal examinations were normal. Multiple diverticula were found in the sigmoidcolon and descending colon. The exam was otherwise without abnormality ondirect and retroflexion views. Procedure Code(s): --- Professional --- G0105, Colorectal cancer screening; colonoscopy on individual at high risk Diagnosis Code(s): --- Professional --- Z86.010, Personal history of colonic polyps K57.30, Diverticulosis of large intestine without perforation or abscess without bleeding CPT copyright 2020 [employer]. All rights reserved. The codes documented in this report are preliminary and upon indirect sales exec reviewmay be revised to meet current compliance requirements. Jv Green MD 03/20/2025 10:51:11 AM This report has been signed electronically.Jv Green MD Number of Addenda: 0 Note Initiated On: 03/20/2025 9:57 AM Scope In: Scope Out: Endoscopy Department at [facility] - [address] [place] [phone] IMPRESSION: - Diverticulosis in the sigmoid colon and in the descending colon. - The examination was otherwise normal on directand retroflexion views. - No specimens collected. Recommendation: - Repeat colonoscopy is not recommended due tocurrent age (66 years or older). us Jv Green MD GI~PROCEDURE ORDERABLES Fin al Result * MG Mammo Digital Screening w Prashanth bilat (12/10/2024 9:35 AM EDT) Anatomical Region Laterality Modality Breast Bilateral Mammography 12/10/2024 9:57 AM EDT Impressions 12/10/2024 10:17 AM EDT Benign. BI-RADS CATEGORY: 1 - NEGATIVE RECOMMENDATION: Screening bilateral mammogram is recommended in 1 year. Mammo Location: [facility], [address] [place] [address], [id number], . -------- FINAL REPORT -------- Dictated By: Neo Briscoe Dictated Date: 12/10/2024 09:57 ET Assigned Physician: Neo Briscoe Reviewed and Electronically Signed By: Neo Briscoe Signed Date: 12/10/2024 10:17 ET Workstation ID: [id number] Transcribed By: Self Edit Transcribed Date: 12/10/2024 [...] year. Mammo Location: [facility], [address] [place] [address], [id number], . -------- FINAL REPORT -------- Dictated By: Neo Briscoe Dictated Date: 12/10/2024 09:57 ET Assigned Physician: Neo Briscoe Reviewed and Electronically Signed By: Neo Briscoe Signed Date: 12/10/2024 10:17 ET Workstation ID: [id number] Transcribed By: Self Edit Transcribed Date: 12/10/2024 [...] probability of hip fracture of 3.8%. Code 48632 -------- FINAL REPORT -------- Dictated By: Pollo Mackey Dictated Date: 10/03/2024 09:26 ET Assigned Physician: Pollo Mackey Reviewed and Electronically Signed By: Pollo Mackey Signed Date: 10/03/2024 09:30 ET Workstation ID: [id number] Transcribed By: Self Edit Transcribed Date: 10/03/2024 [...] density of the femurs bilaterally is 0.893 gm/[id number] is 89% of that of young normals [...] probability of hip fracture of 3.8%. Code 07089 -------- FINAL REPORT -------- Dictated By: Pollo Mackey Dictated Date: 10/03/2024 09:26 ET Assigned Physician: Pollo Mackey Reviewed and Electronically Signed By: Pollo Mackey Signed Date: 10/03/2024 09:30 ET Workstation ID: [id number] Transcribed By: Self Edit Transcribed Date: 10/03/2024 09:28 ET us Bhanu Quigley MD IMG DXA PROCEDURES Final Re sult from Last 3 Months or Most Recently Relevant to Health Maintenance Additional Health Concerns Active Problems Noted Date Diagnosed Date Autogenerated Problem 02/19/2025 Insurance [employer] MEDICARE ADVANTAGE Care Teams Nutritional Services Cook Relationship Specialty Start Date End Date Bhanu Quigley MD [address] [facility] [address] [place], [place] PCP - General Internal Medicine 05/31/24
== END 2025-05-01 10:45 | disposition home or self-care (01) ==
LOC: HO.HPS 10:22
PROVIDERS: PCP Internal Medicine; Visit Provider Internal Medicine Pulmonary Disease
DX: J44.9 Chronic obstructive pulmonary disease, unspecified (principal); F51.01 Primary insomnia
CPT/HCPCS: 99214

== ENCOUNTER → 2025-05-01 10:21 | Outpatient (BNVA) | payer MEDICARE, SELFPAY | PROVIDERS: PCP Internal Medicine; Visit Provider Internal Medicine Pulmonary Disease | DX: J44.9 Chronic obstructive pulmonary disease, unspecified (principal); F51.01 Primary insomnia; Z79.899 Other long term (current) drug therapy; Z87.891 Personal history of nicotine dependence | CPT/HCPCS: 99212 ==